=== PATIENT | male | born 1970 | race Caucasian/White ===

== ENCOUNTER 2023-04-26 10:29 | Emergency (ER) | payer BC, OTHER ==
[~2023-04-26] VITALS: Ht 177.8 cm; Wt 81.6 kg
[2023-04-26 11:52] VITALS: BP 148/83; TEMP 98.6; O2SAT 98
== END 2023-04-26 13:36 | disposition home or self-care (01) ==
LOC: ER 10:29
DX: R55 Syncope and collapse (principal)